=== PATIENT | female | born 1965 | race Caucasian/White ===

== ENCOUNTER 2021-05-30 10:47 | Outpatient (REF) | payer BC, SELFPAY ==
--- NOTE | ~2021-05-30 | XR_ITS ---
EXAMINATION: SR ANKLE, RIGHT XR FOOT, RIGHT CLINICAL INFORMATION: M25.571 - Pain in right ankle and joints of right foot COMPARISON: None TECHNIQUE: 2 views right ankle, 2 views right foot, and a lateral view with larger field of view to include the ankle and foot are obtained. There are total of 5 views. FINDINGS: The malleoli are intact and the ankle mortise is symmetric. The talar dome shows no osteochondral lesion. There is no ankle capsular effusion. There is a punctate corticated ossicle adjacent to tip medial malleolus, not of acute clinical significance. There is soft tissue swelling on lateral side distal to the lateral malleolus. The AP ankle radiograph suggests a punctate ossification lateral aspect mid foot. The AP view foot shows questionable cortical irregularity at the distal lateral calcaneus. The possibility of a cortical avulsion distal lateral calcaneus is raised. This may be correlated with patient's symptoms and clinical exam. The remainder of the midfoot and forefoot appear intact with no fracture or dislocation or destructive process. The subtalar joint is unremarkable. There is no calcaneal spurring. The retrocalcaneal recess is preserved. Incidental bifid medial sesamoid is present. XR/XR foot RT min 3V IMPRESSION: 1. Soft tissue swelling distal to lateral malleolus. Question small cortical avulsion distal lateral calcaneus. Recommend correlation with patient's symptoms and clinical exam. 2. Otherwise no fracture or dislocation. No arthropathy.
--- NOTE | ~2021-05-30 | XR_ITS ---
EXAMINATION: SR ANKLE, RIGHT XR FOOT, RIGHT CLINICAL INFORMATION: M25.571 - Pain in right ankle and joints of right foot COMPARISON: None TECHNIQUE: 2 views right ankle, 2 views right foot, and a lateral view with larger field of view to include the ankle and foot are obtained. There are total of 5 views. FINDINGS: The malleoli are intact and the ankle mortise is symmetric. The talar dome shows no osteochondral lesion. There is no ankle capsular effusion. There is a punctate corticated ossicle adjacent to tip medial malleolus, not of acute clinical significance. There is soft tissue swelling on lateral side distal to the lateral malleolus. The AP ankle radiograph suggests a punctate ossification lateral aspect mid foot. The AP view foot shows questionable cortical irregularity at the distal lateral calcaneus. The possibility of a cortical avulsion distal lateral calcaneus is raised. This may be correlated with patient's symptoms and clinical exam. The remainder of the midfoot and forefoot appear intact with no fracture or dislocation or destructive process. The subtalar joint is unremarkable. There is no calcaneal spurring. The retrocalcaneal recess is preserved. Incidental bifid medial sesamoid is present. XR/XR ankle RT min 3V IMPRESSION: 1. Soft tissue swelling distal to lateral malleolus. Question small cortical avulsion distal lateral calcaneus. Recommend correlation with patient's symptoms and clinical exam. 2. Otherwise no fracture or dislocation. No arthropathy.
== END 2021-05-30 10:48 | disposition home or self-care (01) ==
LOC: HO.HMGCX 10:47
PROVIDERS: PCP Internal Medicine; Visit Provider Hospitalist
DX: M25.571 Pain in right ankle and joints of right foot (principal)
CPT/HCPCS: 73610; 73630

== ENCOUNTER 2021-07-03 15:59 | Outpatient (REF) | payer BC, SELFPAY ==
--- NOTE | ~2021-07-03 | MR_ITS ---
EXAMINATION: MRI ANKLE WITHOUT CONTRAST, RIGHT CLINICAL INFORMATION: Nondisplaced fracture of anterior process of the right calcaneus COMPARISON: X-ray right ankle and foot 05/30/2021 TECHNIQUE: MRI of the ankle without contrast is performed in a 1.5 Iram high-field scanner. FINDINGS: BONE/JOINTS: There is an intra-articular undisplaced fracture of the anterior process of the calcaneus, with severe marrow edema. Edema in the lateral aspect of navicular, medial aspect of the cuboid, probable bone contusion. Prominent edema in the medial talar body and talar neck, inferiorly extending to the subchondral region, probable bone contusion. Focal medial talar dome osteochondral lesion measuring 3 x 3 mm, with overlying cartilage thinning; patchy subchondral edema in the lateral talar dome. These findings could be related to degeneration/arthritis.. MUSCLES/TENDONS: Medial flexor tendons intact. FHL physiological fluid versus tenosynovitis. Peroneal, extensor tendons are grossly intact. LIGAMENTS: Thinning of the ATFL suggesting partial tearing. Sprain posterior talofibular ligament. Tibiofibular, calcaneofibular, ligaments intact. Sprain deep fibers deltoid ligament. ACHILLES TENDON: Intact. PLANTAR FASCIA: Intact. SINUS TARSI: Normal signal. TARSAL TUNNEL : No mass lesion SUBCUTANEOUS SOFT TISSUES: Subcutaneous edema anterolaterally. MR/MR foot RT wo con IMPRESSION: 1. Intra-articular undisplaced fracture of the anterior process of the calcaneus, severe marrow edema. 2. Edema likely bone contusion in the navicular, cuboid, detailed above. 3. Edema in the medial talar body/neck, could reflect bone contusion. 4. Osteochondral findings in the talar dome, could be related to degeneration/arthritis versus osteochondritis dissecans. 5. FHL physiological fluid versus tenosynovitis. 6. Partial tear ATFL. Sprain posterior talofibular, deep fibers deltoid ligament, age indeterminate..
== END 2021-07-03 16:00 | disposition home or self-care (01) ==
LOC: HO.MRI 15:59
PROVIDERS: PCP Internal Medicine; Visit Provider Podiatrist
DX: S92.024D Nondisplaced fracture of anterior process of right calcaneus, subsequent encounter for fracture with routine healing (principal)
CPT/HCPCS: 73718

== ENCOUNTER → 2023-10-29 10:45 | Outpatient (BNVA) | payer OTHER, SELFPAY | PROVIDERS: PCP Internal Medicine; Visit Provider Physician Assistant | DX: S63.591A Other specified sprain of right wrist, initial encounter (principal); W18.30XA Fall on same level, unspecified, initial encounter | CPT/HCPCS: 73110; 73130; 99204 ==

== ENCOUNTER → 2023-11-05 14:08 | Outpatient (BNVA) | payer OTHER, SELFPAY | PROVIDERS: PCP Internal Medicine; Visit Provider Physician Assistant | DX: S63.8X1A Sprain of other part of right wrist and hand, initial encounter (principal); W18.30XA Fall on same level, unspecified, initial encounter | CPT/HCPCS: 99213 ==

== ENCOUNTER 2023-11-11 07:30 | Outpatient (RCR) | payer OTHER, BC, SELFPAY ==
--- NOTE | 2023-11-06 08:26 | MHC.OT.EP ---
[address] [phone] Occupational Therapy Plan of Care Patient Name: Annalisa Farr Date of Evaluation: 11/06/23 Diagnosis: Right MCP Strain Pain Location: 10 resting pain 3/10 ache w/ forecful tasks Pain Score: 3 Pain Scale Used: Numeric (0 - 10) Aggravating Factors: Grasping thing w/ hand Alleviating Factors: Ice, Volteran cream, avoiding use Assessment: Annalisa is a 58 yo female who was at work last week, tripped going up the stairs and jammed her hand into the stairs. She was sent to work connection, 10/29/23 hand x-ray (-) for acute changes or fracture. Today she is seen in OT with overall low pain in right long finger, but has some tightness w/ digit flexion and low field counsel strength for functional use of right hand. She is limited w/ forceful gripping and will continue to limit heavy tasks, but otherwise will benefit from brief course of OT to progress range and strength. Frequency and Duration: The patient will be seen 2x/wk for 3 weeks Short Term Goals: Ind w/ HEP Pt to demo full tip to DPC w/ ease Pt to progress to field counsel strengthening tasks Gross grasp >20lb Pain free at rest Pt to report ease w/ hand writing tasks Group Home Goals: Same as above Treatment Plan: Therapeutic Exercise Therapeutic Activity Home Exercise Program Neuro Re-ed Patient Education Edema Control ADL Training Ultrasound Paraffin Fluidotherapy MHP Cold Packs Joint Mobilization Soft Tissue Mobilization Kinesiotaping Electronically Signed By: Heidi Dickey OTR/L CHT Please Sign and return to therapist. Thank you once again for your referral.
--- NOTE | 2023-11-25 11:29 | MHC.OT.DC ---
[address] [phone] F: [phone] Occupational Therapy Discharge Note Patient Name: Annalisa Farr Provider: Adriane Montalvo PA-C Diagnosis: Right MCP Strain Date of Surgery: Date of Evaluation: 11/06/23 Date of Discharge: 11/25/23 Treatments to Date: 2 Cancellations to Date: No Shows to Date: Discharge Status: Achieved Goals Improved Function Discharge Summary: Annalisa was seen for two visits for right digit sprained after tripping on stairs at work. She has done well w/ brief course of therapy and resting finger. On last appointment, she had good range and dexterity, mild edema which we have given her a digi sleeve for comfort and edema reduction. No report of significant or limiting pain. She is Ind w/ her home program, no further OT needed at this time. Electronically Signed By: Heidi Dickey OTR/Felipe CHT Reviewed/agree with student documentation: Therapist: Please Sign and return to therapist, thank you for your referral.
== END 2023-11-25 11:30 | disposition home or self-care (01) ==
LOC: HO.OT 07:30
PROVIDERS: PCP Internal Medicine; Visit Provider Physician Assistant
DX: S63.652D Sprain of metacarpophalangeal joint of right middle finger, subsequent encounter (principal)
CPT/HCPCS: 97110; 97165

== ENCOUNTER → 2023-11-18 15:45 | Outpatient (BNVA) | payer OTHER, SELFPAY | PROVIDERS: PCP Internal Medicine; Visit Provider Physician Assistant | DX: S63.8X1A Sprain of other part of right wrist and hand, initial encounter (principal); W18.30XA Fall on same level, unspecified, initial encounter | CPT/HCPCS: 99213 ==